=== PATIENT | female | born 1970 | race Caucasian/White ===

== ENCOUNTER 2016-09-26 07:50 | Emergency (ER) | payer BC ==
[~2016-09-26] VITALS: Ht 162.6 cm; Wt 100.2 kg
[~2016-09-26 07:50] MED LIST: BIRTHCONTROL; INDOCIN25 MG PO; SYNTHROID25 MCG PO; ZyrTEC PO
[2016-09-26 08:45] LABS: HEMATOCRIT 40.8 % (36.0-46.0); MCH 32.2 PG (29.0-34.0); MCHC 34.3 G/DL (30.0-36.0); MCV 93.8 FL (83-99); MEAN PLAT.VOLUME 8.9 uM^3 (9.5-12.4); PLATELET COUNT 180 K/uL (156-360); RBC DIS.WIDTH-CV 12.8 % (11.8-14.6); RBC DIS.WIDTH-SD 44.3 % (39-53); RED BLOOD COUNT 4.35 M/uL (3.80-5.20); WHITE BLOOD COUNT 9.9 K/uL (4.1-10.2)
[2016-09-26] MEDS ORDERED: MAG-TAB SR84 MG PO (08:49)
[2016-09-26] MEDS ORDERED: JUNEL FE 1/21 TABLET PO (08:49)
[2016-09-26 09:01] LABS: CHLORIDE 108 mEq/L (99-109); POTASSIUM 3.9 mEq/L (3.7-5.4); SODIUM 138 mEq/L (136-147)
[2016-09-26 09:03] LABS: GLUCOSE 143 mg/dL (70-99)
[2016-09-26 09:04] LABS: ANION GAP 8 MEQ/L (2-14)
[2016-09-26 09:05] LABS: TOTAL BILIRUBIN 0.9 mg/dL (0.0-1.0)
[2016-09-26 09:06] LABS: ALKALINE PHOSPHATASE 50 IU/L (3-129)
[2016-09-26 09:07] LABS: GFR ESTIMATE (CALCULATED) > 59 mL/min/
[2016-09-26 09:08] LABS: UREA NITROGEN (BUN) 16 mg/dL (9-23)
[2016-09-26 09:15] LABS: QUANTITATIVE HCG < 4.0 MIU/ML
[2016-09-26 10:56] LABS: ADD MIUA? YES; BILIRUBIN NEGATIVE; BLOOD NEGATIVE; COLOR YELLOW ((YELLOW)); GLUCOSE (STRIP) NEGATIVE; KETONES 20; LEUKOCYTES NEGATIVE; NITRITE NEGATIVE; PROTEIN (STRIP) 30; SPECIFIC GRAVITY 1.019 (1.000-1.030); UROBILINOGEN 0.2 MG/DL (0.2-1.0)
[2016-09-26 11:06] LABS: BACTERIA RARE /HPF; EPITHELIAL CELLS RARE /HPF; MUCUS 1+ /LPF; RED BLOOD CELLS 0-5 /HPF (0-5); UCUL ADDED? NO; WHITE BLOOD CELLS 0-5 /HPF (0-5)
[2016-09-26] MEDS ORDERED: PERCOCET 5/31 TABLET PO (11:10)
[2016-09-26] MEDS ORDERED: MOTRIN600 MG PO (11:10)
[2016-09-26] MEDS ORDERED: ZOFRAN4 MG PO (11:10)
[2016-09-26 11:33] VITALS: BP 122/81
[2016-09-27] MEDS ORDERED: SYNTHROID150 MCG PO (12:32)
[2016-09-27] MEDS ORDERED: MAGNESIUM OXID500 MG PO (12:33)
[2016-09-27] MEDS ORDERED: MULTI VITAMIN1 EACH PO (12:34)
[2016-09-27] MEDS ORDERED: PERCOCET 5/31 TABLET PO (16:53)
== END 2016-09-26 11:34 | disposition home or self-care (01) ==
LOC: EME 07:50
DX: K80.10 Calculus of gallbladder with chronic cholecystitis without obstruction (principal); E03.9 Hypothyroidism, unspecified
CPT/HCPCS: 74176; 80053; 81003; 84702; 85027; 99281; 99284; J1170; J1885; J2405; J7030; J7050

== ENCOUNTER 2016-09-27 06:59 | Day surgery (SDC) | payer BC ==
[~2016-09-27] VITALS: Ht 162.6 cm; Wt 106.5 kg
[~2016-09-27 06:59] MED LIST changes: +JUNEL FE 1/21 TABLET PO; +MAG-TAB SR84 MG PO; +MOTRIN600 MG PO; +PERCOCET 5/31 TABLET PO; +ZOFRAN4 MG PO
[2016-09-27 07:55] LABS: EOSINOPHIL (%) 0.1 % (0-5); HEMATOCRIT 40.6 % (36.0-46.0); IMMATURE GRANULOCYTE (%) 0.5 % (0.0-0.7); IMMATURE GRANULOCYTE COUNT 0.1 K/uL; INSTRUMENT ABS NEUTROPHIL CT 11.6 K/uL; LYMPHOCYTE COUNT 0.4 K/uL (1.0-2.8); MCH 32.3 PG (29.0-34.0); MCHC 34.2 G/DL (30.0-36.0); MCV 94.2 FL (83-99); MEAN PLAT.VOLUME 8.9 uM^3 (9.5-12.4); MONOCYTE (%) 7.7 % (3-12); NEUTROPHIL (%) 88.2 % (45-76); NEUTROPHIL COUNT 11.6 K/uL (1.8-6.4); PLATELET COUNT 254 K/uL (156-360); RBC DIS.WIDTH-CV 13.1 % (11.8-14.6); RBC DIS.WIDTH-SD 44.7 % (39-53); RED BLOOD COUNT 4.31 M/uL (3.80-5.20); WHITE BLOOD COUNT 13.2 K/uL (4.1-10.2)
[2016-09-27 08:01] LABS: CHLORIDE 106 mEq/L (99-109); POTASSIUM 3.7 mEq/L (3.7-5.4); SODIUM 137 mEq/L (136-147)
[2016-09-27 08:04] LABS: GLUCOSE 144 mg/dL (70-99)
[2016-09-27 08:05] LABS: ANION GAP 7 MEQ/L (2-14)
[2016-09-27 08:07] LABS: ALKALINE PHOSPHATASE 54 IU/L (3-129); GFR ESTIMATE (CALCULATED) > 59 mL/min/
[2016-09-27 08:08] LABS: UREA NITROGEN (BUN) 11 mg/dL (9-23)
[2016-09-27 08:11] LABS: LIPASE 10 U/L (1.0-51.0)
[2016-09-27 08:13] LABS: TOTAL BILIRUBIN 1.5 mg/dL (0.0-1.0)
[2016-09-27 08:17] LABS: QUANTITATIVE HCG < 4.0 MIU/ML
[2016-09-27] MEDS ORDERED: SYNTHROID150 MCG PO (12:32)
[2016-09-27] MEDS ORDERED: MAGNESIUM OXID500 MG PO (12:33)
[2016-09-27] MEDS ORDERED: MULTI VITAMIN1 EACH PO (12:34)
[2016-09-27] MEDS ORDERED: PERCOCET 5/31 TABLET PO (16:53)
[2016-09-27 18:19] VITALS: BP 126/62
[2016-09-27 23:02] VITALS: BP 105/57
[2016-09-28 03:05] VITALS: BP 102/55
[2016-09-28 06:55] VITALS: BP 120/69
== END 2016-09-28 10:54 | disposition home or self-care (01) ==
LOC: EME 06:59 → SDC 14:38 → 2SOUTH 16:35 → 2EAST 18:12
PROVIDERS: Physician Assistant
PROC: 0FT44ZZ Resection of Gallbladder, Percutaneous Endoscopic Approach (ICD-10-PCS; principal; 2016-09-27)
DX: K80.00 Calculus of gallbladder with acute cholecystitis without obstruction (principal); E03.9 Hypothyroidism, unspecified; K21.9 Gastro-esophageal reflux disease without esophagitis; R11.0 Nausea
CPT/HCPCS: 76705; 80053; 83690; 84702; 85025; 88304; 93005; 99281; 99285; G0378; J0330; J1100; J1170; J1885; J2250; J2270; J2405; J2710; J3010; J7120